=== PATIENT | male | born 1995 | race Caucasian/White ===

== ENCOUNTER 2018-04-17 23:34 | Emergency (ER) | payer MEDICAID ==
[~2018-04-17] VITALS: Ht 175.3 cm; Wt 65.9 kg
[~2018-04-17 23:34] MED LIST: CETI-272; CYCL10TA27; DABI150C PO; DEXL60CA3 PO; LORAZEPAM; METH-360 PO; METO-292 PO; NABU500T2; ONDA4TAB6 PO; SUCR1TAB34 PO; ZOLOFT
[2018-04-17 23:48] VITALS: BP 103/57
--- NOTE | 2018-04-17 23:59 | NUR ---
DR MISHRA NOTIFIED OF PT CONDITION AND CURRENT BLOOD THINNER USE.
[2018-04-18] MEDS ORDERED: ketorolac tromethamine 15mg/ml inj. IM ONE (00:20)
[2018-04-18] MEDS ORDERED: CYCL-1 PO (00:38)
== END 2018-04-18 00:57 | disposition home or self-care (01) ==
LOC: ER 23:35
DX: M54.2 Cervicalgia (principal); Z86.718 Personal history of other venous thrombosis and embolism; Z88.8 Allergy status to other drugs, medicaments and biological substances; Z79.899 Other long term (current) drug therapy
CPT/HCPCS: 96372; 99283; J1885

== ENCOUNTER 2019-12-15 10:54 | Outpatient (CLI) | payer BC, OTHER ==
[~2019-12-15 10:54] MED LIST changes: +CYCL-1 PO; +NABU-134; -NABU500T2
[2019-12-15] MEDS ORDERED: LANS30CA56 PO (14:31)
[2019-12-15] MEDS ORDERED: MELO-102 PO (14:34)
[2019-12-15] MEDS ORDERED: OXYC-145 PO (14:34)
[2019-12-15] MEDS ORDERED: CYAN-34 PO (14:34)
[2019-12-15] MEDS ORDERED: OMEP20CA15 PO (14:37)
[2019-12-15] MEDS ORDERED: NORT50CA5 PO (14:37)
[2019-12-16] MEDS ORDERED: PRUC1TAB PO (09:51)
== END 2019-12-15 23:59 | disposition home or self-care (01) ==
LOC: VAS 10:54
PROVIDERS: ATTEND Family Medicine
DX: I82.532 Chronic embolism and thrombosis of left popliteal vein (principal); R60.9 Edema, unspecified; Z98.890 Other specified postprocedural states
CPT/HCPCS: 93970

== ENCOUNTER 2019-12-15 12:14 | Inpatient (IN) | payer BC, OTHER ==
[~2019-12-15] VITALS: Ht 175.3 cm; Wt 72.0 kg
[2019-12-15] MEDS ORDERED: aspirin 81mg tab.chew PO ONE (12:50)
[2019-12-15] MEDS ORDERED: normal saline 1000ML IV soln IVB ONE (12:50)
[2019-12-15] MEDS ORDERED: iohexol 350MG/ML 100ml bottle IV ONE (12:53)
[2019-12-15 12:58] LABS: BASOPHILS % (AUTO) 0.5 % (0-1); EOSINOPHILS # (AUTO) 0.1 X10'3 (0-0.9); HEMOGLOBIN 13.9 g/dl (14.0-17.9); LYMPHOCYTES # (AUTO) 1.4 X10'3 (1.1-4.8); LYMPHOCYTES % (AUTO) 16.8 % (21-51); MEAN CORPUSCULAR HEMOGLOBIN 28.9 PG (27.0-31.0); MEAN CORPUSCULAR HGB CONC 33.1 g/dL (33.0-36.5); MEAN CORPUSCULAR VOLUME 87.4 FL (78-98); MEAN PLATELET VOLUME 7.6 FL (7.4-10.4); MONOCYTES # (AUTO) 0.7 X10'3 (0-0.9); MONOCYTES % (AUTO) 8.4 % (2-12); NEUTROPHILS # (AUTO) 6.3 X10'3 (1.8-7.7); NEUTROPHILS % (AUTO) 73.3 % (42-75); PLATELET COUNT 530 X10'3 (140-440); RED CELL DISTRIBUTION WIDTH 17.4 % (11.5-14.5); WHITE BLOOD COUNT 8.6 X10'3 (4.5-11.0)
[2019-12-15 13:22] LABS: ALANINE AMINOTRANSFERASE 41 U/L (12-78); ALBUMIN 3.6 G/DL (3.4-5.0); ALBUMIN/GLOBULIN RATIO 0.9 (1.1-1.5); ALKALINE PHOSPHATASE 34 IU/L (46-116); ANION GAP 6 (8-16); ASPARTATE AMINO TRANSFERASE 31 U/L (10-37); BILIRUBIN,TOTAL 0.5 MG/DL (0.1-1.0); BLOOD UREA NITROGEN 14 MG/DL (7-18); BUN/CREATININE RATIO 14.4 (5.4-32.0); CHLORIDE 104 MMOL/L (99-107); CREATININE 0.97 MG/DL (0.60-1.10); GLUCOSE 91 MG/DL (70-104); POTASSIUM 4.2 MMOL/L (3.5-5.1); SODIUM 138 MMOL/L (135-145); TOTAL CARBON DIOXIDE 28.4 MMOL/L (24-32); TOTAL PROTEIN 7.6 G/DL (6.4-8.2); eGFR > 90 ML/MIN
[2019-12-15 14:09] LABS: PARTIAL THROMBOPLASTIN TIME 27 SECONDS (22-32)
[2019-12-15] MEDS ORDERED: heparin 10,000 units/1 ML INJ IV ONE ×2 (14:15→14:45)
[2019-12-15] MEDS ORDERED: heparin 25,000 UNIT/250ml bag 250 ML IV SCH (14:15)
[2019-12-15] MEDS ORDERED: mag hydrox/Alum hydrox/simeth 30ml oral suspension PO PRN (14:30)
[2019-12-15] MEDS ORDERED: ondansetron/PF 4mg/2ml inj IV PRN (14:30)
[2019-12-15] MEDS ORDERED: acetaminophen 325mg tablet PO PRN (14:30)
[2019-12-15] MEDS ORDERED: magnesium hydroxide 30ml (MOM) UD suspension PO PRN (14:30)
[2019-12-15] MEDS ORDERED: LANS30CA56 PO (14:31)
[2019-12-15] MEDS ORDERED: CYAN-34 PO (14:34)
[2019-12-15] MEDS ORDERED: OXYC-145 PO (14:34)
[2019-12-15] MEDS ORDERED: MELO-102 PO (14:34)
[2019-12-15] MEDS ORDERED: NORT50CA5 PO (14:37)
[2019-12-15] MEDS ORDERED: OMEP20CA15 PO (14:37)
[2019-12-15] MEDS: heparin 25,000 UNIT/250ml bag 250 ML IV SCH (14:44)
[2019-12-15] MEDS: normal saline 1000ml 1,000 ML IV SCH (14:46)
--- NOTE | 2019-12-15 15:06 | NUR ---
Received report from JOELLE Barrientos. Awaiting patient arrival to room 309.
--- NOTE | 2019-12-15 15:45 | NUR ---
Received patient to room 309. Patient alert and oriented x4 with only complaint of being hungry. Oriented patient to young and call light. Call light placed within patient's reach. Bed is low and locked with x2 side rails up.
--- NOTE | 2019-12-15 15:52 | NUR ---
career resource technician in at bedside.
[2019-12-15] MEDS: morphine 2 MG/ML inj. syringe IV PRN ×2 (16:27→21:20)
[2019-12-15 16:30] VITALS: BP 106/56
[2019-12-15 18:00] VITALS: BP 122/92
--- NOTE | 2019-12-15 18:21 | NUR ---
Patient in room MED 309. I have received report from Carole LAI and had the opportunity to ask questions and assume patient care.
--- NOTE | 2019-12-15 18:21 | NUR ---
Problems reprioritized. Patient report given, questions answered & plan of care reviewed with JOELLE Blanchard.
[2019-12-15] MEDS: nortriptyline 25mg capsule PO SCH (21:15)
[2019-12-15 22:00] VITALS: BP 133/84
[2019-12-16] MEDS: normal saline 1000ml 1,000 ML IV SCH ×2 (00:58→10:30)
[2019-12-16 01:21] LABS: ALBUMIN 3.3 G/DL (3.4-5.0); ANION GAP 5 (8-16); BLOOD UREA NITROGEN 13 MG/DL (7-18); BUN/CREATININE RATIO 12.3 (5.4-32.0); CALCIUM 8.9 MG/DL (8.5-10.1); CHLORIDE 105 MMOL/L (99-107); CREATININE 1.06 MG/DL (0.60-1.10); GLUCOSE 109 MG/DL (70-104); POTASSIUM 3.5 MMOL/L (3.5-5.1); SODIUM 139 MMOL/L (135-145); TOTAL CARBON DIOXIDE 28.6 MMOL/L (24-32); eGFR 85 ML/MIN
[2019-12-16 01:22] LABS: BASOPHILS % (AUTO) 0.5 % (0-1); EOSINOPHILS # (AUTO) 0.1 X10'3 (0-0.9); EOSINOPHILS % (AUTO) 1.4 % (0-6); HEMATOCRIT 41.2 % (42.0-52.0); HEMOGLOBIN 13.5 g/dl (14.0-17.9); LYMPHOCYTES # (AUTO) 1.6 X10'3 (1.1-4.8); LYMPHOCYTES % (AUTO) 21.5 % (21-51); MEAN CORPUSCULAR HEMOGLOBIN 28.8 PG (27.0-31.0); MEAN CORPUSCULAR HGB CONC 32.8 g/dL (33.0-36.5); MEAN CORPUSCULAR VOLUME 87.8 FL (78-98); MEAN PLATELET VOLUME 7.6 FL (7.4-10.4); MONOCYTES # (AUTO) 0.8 X10'3 (0-0.9); NEUTROPHILS % (AUTO) 66.6 % (42-75); PLATELET COUNT 494 X10'3 (140-440); RED BLOOD COUNT 4.69 X10'6 (4.70-6.10); RED CELL DISTRIBUTION WIDTH 17.4 % (11.5-14.5); WHITE BLOOD COUNT 7.6 X10'3 (4.5-11.0)
[2019-12-16] MEDS: heparin 10,000 units/1 ML INJ IV PRN ×2 (01:35→21:14)
[2019-12-16] MEDS: heparin 25,000 UNIT/250ml bag 250 ML IV SCH ×3 (01:45→21:18)
[2019-12-16 02:00] VITALS: BP 108/66
[2019-12-16 06:00] VITALS: BP 105/62
--- NOTE | 2019-12-16 06:28 | NUR ---
Problems reprioritized. Patient report given, questions answered & plan of care reviewed with Sary LAI.
--- NOTE | 2019-12-16 06:59 | NUR ---
Patient in room MED 309. I have received report from JOELLE Blanchard and had the opportunity to ask questions and assume patient care.
[2019-12-16] MEDS: cyanocobalamin 500mcg tablet PO SCH (08:14)
[2019-12-16] MEDS: pantoprazole 40mg Tablet.DR PO SCH (08:14)
[2019-12-16] MEDS: oxyCODONE/APAP 5-325mg tablet PO PRN ×2 (08:16→12:52)
[2019-12-16] MEDS ORDERED: PRUC1TAB PO (09:51)
--- NOTE | 2019-12-16 10:06 | NUR ---
PAGER ID: [phone] MESSAGE: pt. 309. pt./ Drew Ca has one more med to reconcile. his [employer]. Thank you. Sary [phone]
[2019-12-16 12:32] VITALS: BP 115/57
[2019-12-16 15:00] VITALS: BP 125/71
[2019-12-16 18:00] VITALS: BP 130/71
--- NOTE | 2019-12-16 18:00 | NUR ---
talked to both pt. mom and girlfriend twice each on shift. was able to explain the pt. plan of care and answer all their questions. both understood and were ok with the care plan.
--- NOTE | 2019-12-16 18:17 | NUR ---
Patient in room MED 309. I have received report from ASHLEY LAI and had the opportunity to ask questions and assume patient care.
--- NOTE | 2019-12-16 18:18 | NUR ---
Problems reprioritized. Patient report given, questions answered & plan of care reviewed with JOELLE Blanchard.
[2019-12-16] MEDS: morphine 2 MG/ML inj. syringe IV PRN (19:45)
[2019-12-16] MEDS: nortriptyline 25mg capsule PO SCH (21:12)
[2019-12-16 22:00] VITALS: BP 121/68
[2019-12-17] MEDS: morphine 2 MG/ML inj. syringe IV PRN (00:18)
[2019-12-17 02:00] VITALS: BP 127/68
[2019-12-17 02:48] LABS: BASOPHILS # (AUTO) 0.1 X10'3 (0-0.2); HEMOGLOBIN 13.9 g/dl (14.0-17.9); LYMPHOCYTES # (AUTO) 2.5 X10'3 (1.1-4.8); MONOCYTES # (AUTO) 0.8 X10'3 (0-0.9); NEUTROPHILS # (AUTO) 6.5 X10'3 (1.8-7.7)
[2019-12-17 02:50] LABS: BASOPHILS % (AUTO) 0.9 % (0-1); EOSINOPHILS # (AUTO) 0.1 X10'3 (0-0.9); EOSINOPHILS % (AUTO) 1.3 % (0-6); HEMATOCRIT 42.5 % (42.0-52.0); LYMPHOCYTES % (AUTO) 24.7 % (21-51); MEAN CORPUSCULAR HEMOGLOBIN 28.5 PG (27.0-31.0); MEAN CORPUSCULAR HGB CONC 32.7 g/dL (33.0-36.5); MEAN CORPUSCULAR VOLUME 87.2 FL (78-98); MEAN PLATELET VOLUME 7.2 FL (7.4-10.4); MONOCYTES % (AUTO) 7.7 % (2-12); NEUTROPHILS % (AUTO) 65.4 % (42-75); PLATELET COUNT 521 X10'3 (140-440); RED BLOOD COUNT 4.87 X10'6 (4.70-6.10); RED CELL DISTRIBUTION WIDTH 16.9 % (11.5-14.5)
[2019-12-17 03:01] LABS: ALBUMIN 3.4 G/DL (3.4-5.0); ANION GAP 5 (8-16); BLOOD UREA NITROGEN 11 MG/DL (7-18); BUN/CREATININE RATIO 10.3 (5.4-32.0); CHLORIDE 103 MMOL/L (99-107); CREATININE 1.07 MG/DL (0.60-1.10); GLUCOSE 90 MG/DL (70-104); POTASSIUM 3.8 MMOL/L (3.5-5.1); SODIUM 138 MMOL/L (135-145); TOTAL CARBON DIOXIDE 29.8 MMOL/L (24-32); eGFR 84 ML/MIN
[2019-12-17] MEDS: heparin 25,000 UNIT/250ml bag 250 ML IV SCH (03:49)
[2019-12-17 06:00] VITALS: BP 100/56
--- NOTE | 2019-12-17 06:12 | NUR ---
Problems reprioritized. Patient report given to GilRN, questions answered & plan of care reviewed with .
--- NOTE | 2019-12-17 06:14 | NUR ---
Patient in room MED 309. I have received report from JOELLE Blanchard and had the opportunity to ask questions and assume patient care.
[2019-12-17] MEDS: pantoprazole 40mg Tablet.DR PO SCH (08:30)
[2019-12-17] MEDS: cyanocobalamin 500mcg tablet PO SCH (08:30)
[2019-12-17] MEDS ORDERED: apixaban 5mg tablet PO SCH (08:55)
--- NOTE | 2019-12-17 09:52 | NUR ---
DR. GEE PAGED: PAGER ID: [phone] MESSAGE: 309: DEVIN - PIV came out, 10mg Eliquis given @ [id number]. do we need to have hep gtt going for overlap? pt would rather not have another PIV if not needed. nurse neto [phone]
[2019-12-17] MEDS ORDERED: APIX5TAB3 PO (10:13)
--- NOTE | 2019-12-17 11:46 | NUR ---
pt. was discharged from facility at 1140. pt. was wheeled down to lobby by staff and picked up by family. pt. signed and understood all paperwork. pt. new med was escripted to [facility] and RN called to confirm it was there. pt. IV was d/c intact. pt. understands to make f/u appointment with their pnp. pt. was given crutches for a prior orthopedic surgery and left with all belongings.
== END 2019-12-17 11:40 | disposition home or self-care (01) | DRG 176 ==
LOC: ER 12:15 → ED HOLD 14:26 → MED 3N 15:45
PROVIDERS: ADMIT Family Medicine; ATTEND Family Medicine
PROC: B32T1ZZ Computerized Tomography (CT Scan) of Left Pulmonary Artery using Low Osmolar Contrast (ICD-10-PCS; principal; 2019-12-15)
PROC: B32S1ZZ Computerized Tomography (CT Scan) of Right Pulmonary Artery using Low Osmolar Contrast (ICD-10-PCS; 2019-12-15)
DX: I26.99 Other pulmonary embolism without acute cor pulmonale (principal); I82.409 Acute embolism and thrombosis of unspecified deep veins of unspecified lower extremity; K21.9 Gastro-esophageal reflux disease without esophagitis; K31.84 Gastroparesis; Z79.899 Other long term (current) drug therapy
CPT/HCPCS: 36415; 71045; 71275; 80048; 80053; 83880; 84484; 85025; 85610; 85730; 86885; 86900; 86901; 87081; 93005; 93306; 93308; 96374; 99285; G0378; J1644; J2270; J7030; Q9967

== ENCOUNTER 2020-06-22 14:16 | Outpatient (CLI) | payer MEDICAID ==
[~2020-06-22 14:16] MED LIST changes: +APIX5TAB3 PO; -CETI-272; +CYAN-34 PO; -CYCL-1 PO; -CYCL10TA27; -DABI150C PO; -DEXL60CA3 PO; -LORAZEPAM; +MELO-102 PO; -METH-360 PO; -METO-292 PO; -NABU-134; +NORT50CA5 PO; +OMEP20CA15 PO; -ONDA4TAB6 PO; +OXYC-145 PO; +PRUC1TAB PO; -SUCR1TAB34 PO; -ZOLOFT
== END 2020-06-22 23:59 | disposition home or self-care (01) ==
LOC: VAS 14:16
PROVIDERS: ATTEND Internal Medicine Hematology & Oncology
DX: D68.59 Other primary thrombophilia (principal)
CPT/HCPCS: 93971

== ENCOUNTER → 2020-07-17 | Outpatient (CLI) | payer MEDICAID | END | disposition home or self-care (01) | LOC: RAD 08:47 | PROVIDERS: ATTEND Internal Medicine Hematology & Oncology | DX: D68.9 Coagulation defect, unspecified (principal); Z53.9 Procedure and treatment not carried out, unspecified reason ==

== ENCOUNTER 2021-10-01 16:09 | Emergency (ER) | payer MEDICAID ==
[~2021-10-01] VITALS: Ht 175.3 cm; Wt 54.0 kg
[2021-10-01 16:29] VITALS: BP 115/69
[2021-10-01] MEDS ORDERED: diazepam 5mg tablet PO ONE (18:20)
[2021-10-01] MEDS ORDERED: ketorolac tromethamine 15mg/ml inj. IM ONE (18:20)
[2021-10-01] MEDS ORDERED: ORPH100T2 PO (18:44)
[2021-10-01] MEDS ORDERED: METH4TAB3 PO (18:45)
[2021-10-01] MEDS ORDERED: dexamethasone sod phosphate 10mg/ml inj IM STA (18:45)
== END 2021-10-01 19:52 | disposition home or self-care (01) ==
LOC: ER 16:10
DX: M54.40 Lumbago with sciatica, unspecified side (principal); Z88.8 Allergy status to other drugs, medicaments and biological substances
CPT/HCPCS: 96372; 99284; J1100; J1885

== ENCOUNTER 2022-11-20 12:43 | Outpatient (CLI) | payer MEDICARE, MEDICAID, OTHER ==
[~2022-11-20 12:43] MED LIST changes: +METH4TAB3 PO; +ORPH100T4 PO
== END 2022-11-20 23:59 | disposition home or self-care (01) ==
LOC: VAS 12:43
PROVIDERS: ATTEND Nurse Practitioner Family
DX: M79.671 Pain in right foot (principal); Z86.718 Personal history of other venous thrombosis and embolism
CPT/HCPCS: 93971

== ENCOUNTER 2024-10-19 06:32 | Outpatient (CLI) | payer MEDICARE, MEDICAID, OTHER ==
[2024-10-19] VITALS (22 sets, daily range): BP systolic 87–117; BP diastolic 55–76; PULSE 56–93
== END 2024-10-19 23:59 | disposition home or self-care (01) ==
LOC: CARD DIAG 06:32
PROVIDERS: ATTEND Internal Medicine Interventional Cardiology
DX: R42 Dizziness and giddiness (principal)
CPT/HCPCS: 93660